=== PATIENT | female | born 1975 | race Caucasian/White ===

== ENCOUNTER → 2021-03-26 | Outpatient (CLI) | payer BC ==
--- NOTE | 2021-03-26 12:47 | KCIC ---
MRI of the cervical spine without contrast 03/26/2021 CLINICAL HISTORY: Chronic neck pain and headaches since 2009. Bilateral arm pain. TECHNIQUE: Unenhanced T1-weighted, T2-weighted and inversion recovery sagittal and gradient echo and T2-weighted axial images of the cervical spine were obtained. FINDINGS: Minimal lateral curvature of the cervical spine is seen convex to the left. There is straig htening of the normal cervical lordosis. Degenerative signal changes are seen involving all of the di sks of the cervical spine. The marrow signal of the visualized bony structures is within normal limit s. The cervical spinal cord is normal morphology, position, and signal characteristics. On the axial images throughout the cervical disc spaces, degenerative changes are seen consisting of minimal to mild generalized disc bulges and mild degenerative changes involving the uncovertebral and facet joints. Small superimposed focal central disc protrusions are seen which measure 2 mm in AP di ameter. These findings do not result in significant central spinal canal or neural foraminal stenosis at any level. IMPRESSION: Degenerative changes are seen involving the cervical spine as discussed above. These find ings do not result in significant central spinal canal or neural foraminal stenosis at any level. Electronically signed by: Rigoberto Ovalle MD (03/26/2021 12:45 PM) [id number]
--- NOTE | 2021-03-26 12:54 | KCIC ---
MRI of the lumbar spine without contrast 03/26/2021 CLINICAL HISTORY: Chronic low back pain since 2009. Right hip pain and bilateral leg pain. TECHNIQUE: Unenhanced T1-weighted and T2-weighted sagittal and axial and inversion recovery sagittal images of the lumbar spine were obtained. FINDINGS: Minimal S-shaped curvature of the thoracolumbar spine is seen. Degenerative signal changes are seen involving the L5-S1 disc. The marrow signal of the visualized bony structures is within norm al limits. The conus medullaris is normal morphology, position, and signal characteristics. A 7 mm ro unded high signal intensity lesion is seen involving the lower pole of the right kidney on the T2-cade ghted images. This likely represents a cyst. No further imaging evaluation is recommended. The changes of mild degenerative disc disease are seen throughout the lumbar disc spaces. These consi st of minimal to mild generalized disc bulges, degenerative changes involving the facet joints, mild to moderate ligamentum flavum hypertrophy bilaterally and small facet joint effusions. These findings do not result in significant central spinal canal or neural foraminal stenosis at any level. IMPRESSION: The changes of degenerative disc disease are seen throughout the lumbar spine as discusse d above. These findings do not result in significant central spinal canal or neural foraminal stenosi s. Electronically signed by: Rigoberto Ovalle MD (03/26/2021 12:51 PM) [id number]
== END ==
LOC: KCIC MRI 09:45
DX: M47.812 Spondylosis without myelopathy or radiculopathy, cervical region (principal); M51.36 Other intervertebral disc degeneration, lumbar region
CPT/HCPCS: 72141; 72148